=== PATIENT | female | born 1995 ===

== ENCOUNTER 2021-07-30 05:17 | Inpatient (IN) | payer OTHER ==
[2021-07-30] MEDS ORDERED: Metoclopramide 10 MG/2 ML SDV IVPUSH ONE ×2 (05:49→22:22)
[2021-07-30] MEDS ORDERED: Sodium Chloride 0.9% 10 ML Syringe FLUSH PRN ×2 (05:49→22:22)
[2021-07-30] MEDS ORDERED: Ondansetron 4 MG/2 ML SDV IVPUSH PRN ×2 (05:49→23:32)
[2021-07-30] MEDS ORDERED: Citric Acid/Sodium Citrate Solution 30 ML Cup PO ONE ×2 (05:49→22:22)
[2021-07-30] MEDS ORDERED: ceFAZolin 1 GM Vial ONE ×2 (06:46→22:37)
[2021-07-30] MEDS ORDERED: Ondansetron 4 MG/2 ML SDV ONE ×3 (06:46→22:47)
[2021-07-30] MEDS ORDERED: Ketorolac 30 MG/ML SDV ONE ×2 (06:46→22:47)
[2021-07-30] MEDS ORDERED: Oxytocin 10 Units/1 ML SDV ONE ×2 (06:46→22:51)
[2021-07-30] MEDS ORDERED: Morphine PF 10 MG/10 ML SDV ONE ×2 (06:47→22:43)
[2021-07-30] MEDS ORDERED: Terbutaline 1 MG/ML SDV IV ONE (07:29)
[2021-07-30] MEDS ORDERED: Terbutaline 1 MG/ML SDV SUBCUT ONE (07:30)
[2021-07-30] MEDS ORDERED: Oxytocin/Lactated Ringers 10 UNIT/1,000 ML BAG IV SCH (07:45)
[2021-07-30] MEDS: Lactated Ringers 1,000 ML IV SCH ×4 (07:58→20:15)
[2021-07-30] MEDS ORDERED: Nalbuphine HCl 10 MG/ 1ML Amp IVPUSH PRN (08:05)
[2021-07-30] MEDS ORDERED: Bupivacaine/fentaNYL/NS 100 ML Bag EPIDUR PRN (08:21)
[2021-07-30] MEDS ORDERED: fentaNYL 100 MCG/2 ML SDV EPIDUR PRN (08:21)
[2021-07-30] MEDS ORDERED: diphenhydrAMINE 50 MG/ML SDV IVPUSH PRN ×2 (08:21→23:32)
[2021-07-30] MEDS ORDERED: ePHEDrine 50 MG/ML SDV IVPUSH PRN (08:21)
[2021-07-30] MEDS: Sodium Chloride 0.9% 10 ML Syringe FLUSH SCH ×2 (20:35→21:12)
[2021-07-30] MEDS ORDERED: Oxytocin/Lactated Ringers 20 UNIT/1,000 ML BAG IV SCH (21:15)
[2021-07-30] MEDS ORDERED: ceFAZolin 2 GM in Sodium Chloride 0.9% 50 ML IV ONE (22:22)
[2021-07-30] MEDS ORDERED: Citric Acid/Sodium Citrate Solution 30 ML Cup ONE (22:26)
[2021-07-30] MEDS ORDERED: Lactated Ringers 1,000 ML IV SCH (22:30)
[2021-07-30] MEDS ORDERED: fentaNYL 100 MCG/2 ML SDV ONE (22:35)
[2021-07-30] MEDS ORDERED: Lidocaine 2% with EPINEPHrine 1:200,000 20 ML SDV ONE (22:47)
[2021-07-30] MEDS ORDERED: Sodium Bicarbonate 8.4% 50 MEQ/50 ML SDV ONE (22:47)
[2021-07-30] MEDS ORDERED: Lactated Ringers 1,000 ML ONE ×2 (22:48)
[2021-07-30] MEDS ORDERED: Meperidine 50 MG/ML Vial IVPUSH PRN (23:32)
[2021-07-30] MEDS ORDERED: fentaNYL 100 MCG/2 ML SDV IVPUSH PRN (23:32)
[2021-07-31] MEDS ORDERED: Docusate Sodium 100 MG Cap PO PRN (02:19)
[2021-07-31] MEDS ORDERED: ePHEDrine 50 MG/ML SDV IVPUSH PRN (02:19)
[2021-07-31] MEDS ORDERED: Naloxone 0.4 MG/ML SDV IVPUSH PRN (02:19)
[2021-07-31] MEDS ORDERED: Acetaminophen/oxyCODONE 325-5 MG Tab PO PRN ×2 (02:19)
[2021-07-31] MEDS ORDERED: diphenhydrAMINE 50 MG/ML SDV IVPUSH PRN (02:19)
[2021-07-31] MEDS ORDERED: Ibuprofen 600 MG Tab PO SCH (02:19)
[2021-07-31] MEDS ORDERED: Ondansetron 4 MG/2 ML SDV IV PRN (02:19)
[2021-07-31] MEDS ORDERED: Dextrose 5%-Lactated Ringers 1,000 ML IV SCH (02:19)
[2021-07-31] MEDS: Ibuprofen 600 MG Tab PO SCH ×3 (05:55→19:26)
[2021-07-31] MEDS: Simethicone 80 MG Tab.Chew PO SCH ×4 (08:46→22:43)
[2021-07-31] MEDS: Prenatal Multivitamin with Calcium/Folic Acid/Iron Tab PO SCH (08:46)
[2021-07-31] MEDS: Enoxaparin 40 MG/0.4 ML Syringe SUBCUT SCH (13:12)
[2021-08-01] MEDS: Ibuprofen 600 MG Tab PO SCH ×4 (01:43→18:41)
[2021-08-01] MEDS: Prenatal Multivitamin with Calcium/Folic Acid/Iron Tab PO SCH (10:01)
[2021-08-01] MEDS: Enoxaparin 40 MG/0.4 ML Syringe SUBCUT SCH (10:01)
[2021-08-01] MEDS: Simethicone 80 MG Tab.Chew PO SCH ×4 (10:02→22:17)
[2021-08-02] MEDS: Ibuprofen 600 MG Tab PO SCH ×2 (01:48→06:55)
[2021-08-02] MEDS: Prenatal Multivitamin with Calcium/Folic Acid/Iron Tab PO SCH (09:20)
[2021-08-02] MEDS: Simethicone 80 MG Tab.Chew PO SCH (09:20)
[2021-08-02] MEDS: Enoxaparin 40 MG/0.4 ML Syringe SUBCUT SCH (09:20)
== END 2021-08-02 13:45 | disposition home or self-care (01) | DRG 787 ==
LOC: JD.OBCHECK 05:17 → JD.OB 05:19 → JD.OBCHECK 08:10 → JD.OB 08:24 → OBSVTOIN 22:41 → JD.OB 22:42
PROVIDERS: ADMIT Obstetrics & Gynecology; ATTEND Obstetrics & Gynecology
PROC: 10D00Z1 Extraction of Products of Conception, Low, Open Approach (ICD-10-PCS; principal; 2021-07-30)
PROC: 10907ZC Drainage of Amniotic Fluid, Therapeutic from Products of Conception, Via Natural or Artificial Opening (ICD-10-PCS; 2021-07-30)
PROC: 3E033VJ Introduction of Other Hormone into Peripheral Vein, Percutaneous Approach (ICD-10-PCS; 2021-07-30)
PROC: 3E0R3BZ Introduction of Anesthetic Agent into Spinal Canal, Percutaneous Approach (ICD-10-PCS; 2021-07-30)
DX: O32.1XX0 Maternal care for breech presentation, not applicable or unspecified (principal); O99.12 Other diseases of the blood and blood-forming organs and certain disorders involving the immune mechanism complicating childbirth; D68.51 Activated protein C resistance; Z37.0 Single live birth; O69.0XX0 Labor and delivery complicated by prolapse of cord, not applicable or unspecified; Z3A.39 39 weeks gestation of pregnancy
CPT/HCPCS: 01967; 01968; 36415; 51702; 59025; 59412; 74018; 74018-26; 85025; 85027; 86592; 86850; 86900; 86901; 94762; A9270-GY; J0690; J1650; J1885; J2274; J2370; J2405; J2590; J2765; J3010; J3105; J7120; J7121